=== PATIENT | female | born 1985 | race Asian ===

== ENCOUNTER 2024-02-07 20:02 | Emergency (ER) | payer MEDICARE, MEDICAID ==
[~2024-02-07] VITALS: Ht 175.3 cm; Wt 90.9 kg
[2024-02-07 23:53] VITALS: BP 138/76; PULSE 94; RESP 18; O2SAT 98
== END 2024-02-08 01:38 | disposition home or self-care (01) ==
LOC: EMS 20:02
DX: S09.90XA Unspecified injury of head, initial encounter (principal); F17.210 Nicotine dependence, cigarettes, uncomplicated; F41.9 Anxiety disorder, unspecified; F32.A Depression, unspecified; Z88.0 Allergy status to penicillin; W22.8XXA Striking against or struck by other objects, initial encounter; Y93.89 Activity, other specified; Y92.89 Other specified places as the place of occurrence of the external cause; Y99.8 Other external cause status
CPT/HCPCS: 70450; 99284